=== PATIENT | male | born 1985 | race Caucasian/White ===

== ENCOUNTER 2021-11-24 04:03 | Emergency (ER) | payer SELFPAY ==
[2021-11-24 04:35] LABS: Hemoglobin 12.1 g/dL (14.0-18.0); Mean Corpuscular HGB CONC 34.1 g/dL (32.0-36.0); Mean Corpuscular Hemoglobin 31.7 pg (27.0-31.0); Mean Corpuscular Volume 93.1 fL (78.0-98.0); Mean Platelet Volume 7.3 fL (7.4-10.4); Platelet Count 258 thou/uL (130-400); RBC Distribution Width 11.5 % (11.5-14.5); Red Blood Cell (RBC) Count 3.83 mill/uL (4.70-6.10); White Blood Cell (WBC) Count 20.3 thou/uL (4.8-10.8)
[2021-11-24] MEDS ORDERED: Lidocaine 2% PF 5 ML VIAL ONE (04:38)
[2021-11-24 04:42] LABS: Acetaminophen Less than 10.0 mcg/mL (10.0-30.0); Alcohol Less than 10 mg/dL (Less than 10); Salicylate Less than 8.0 mg/dL (15.0-30.0)
[2021-11-24 04:43] LABS: Albumin 3.9 g/dL (3.5-5.0); Anion Gap 10 mmol/L (10-20); BUN (Urea Nitrogen) 19 mg/dL (8.9-20.6); Bilirubin, Total 0.4 mg/dL (0.2-1.2); Calc. Creatinine Clearance 0 mL/min (70-130); Calcium 8.2 mg/dL (7.8-10.44); Carbon Dioxide 24 mmol/L (22-29); Chloride 105 mmol/L (98-107); Estimated GFR 113; Glucose 146 mg/dL (70-105); Potassium 3.3 mmol/L (3.5-5.1); Protein, Total 6.4 g/dL (6.0-8.3); Sodium 136 mmol/L (136-145)
[2021-11-24 04:44] LABS: ALT (SGPT) 12 U/L (8-55); AST (SGOT) 23 U/L (5-34); Alkaline Phosphatase 75 U/L (40-110); Globulin 2.5 g/dL (2.4-3.5)
[2021-11-24] MEDS ORDERED: Midazolam HCl 2 mg/2 ml Vial ONE (04:54)
[2021-11-24] MEDS ORDERED: Ketorolac Tromethamine 30 MG/ML VIAL ONE (05:27)
[2021-11-24 05:36] LABS: Band 8 % (5-11); Eosinophils 1 % (0-10); Lymphocytes 7 % (21-51); MDiff Complete? YES; Monocytes 3 % (0-10); Neutrophil 81 % (42-75)
[2021-11-24] MEDS ORDERED: Iopamidol 370 76% 100 ML VIAL ONE (10:00)
== END 2021-11-24 06:42 | disposition home or self-care (01) ==
LOC: EDBD 04:03 → ERS 04:03
DX: S06.0X0A Concussion without loss of consciousness, initial encounter (principal); S51.832A Puncture wound without foreign body of left forearm, initial encounter; S61.531A Puncture wound without foreign body of right wrist, initial encounter; S81.832A Puncture wound without foreign body, left lower leg, initial encounter; W34.00XA Accidental discharge from unspecified firearms or gun, initial encounter
CPT/HCPCS: 12002; 36415; 70450; 71260; 72125; 74177; 80053; 80307; 85025; 86850; 86900; 86901; G0390; J1885; J2001; J2250; Q9967